=== PATIENT | male | born 1965 | race Caucasian/White ===

== ENCOUNTER 2016-05-28 15:17 | Emergency (ER) | payer OTHER ==
[2016-05-28 15:50] VITALS: BP 120/71; PULSE 79; RESP 18; TEMP 97.2
--- NOTE | 2016-05-28 16:52 | ED ---
Abdominal Pain HPI - General Chief Complaint: Abdominal Pain Stated Complaint: Abd Pain Time Seen by Provider: 05/28/16 16:30 Source: patient Mode of arrival: wheelchair Limitations: no limitations - History of Present Illness Initial Comments: This is a 51-year-old male with a history of right inguinal hernia repair and subsequent chronic right inguinal pain since the surgery. The surgery was done at 2002. Since that surgery is been having chronic pain. He used to be on tramadol for this at home. He states the last 9 months he has not been on any tramadol because he has been homeless and without a job without any money. He recently was taken in by some friends who wanted to get him some help. He does not have a surgeon to follow-up with here. Denies any nausea, vomiting, or diarrhea. He does admit to some weight loss because of the pain area no other complaints. - Related Data Previous Rx's Medication Instructions Recorded traMADol HCL [Ultram] 100 mg PO TID #20 tab 05/28/16 Allergies Allergy/AdvReac Type Severity Reaction Status Date / Time No Known Allergies Allergy Verified 05/28/16 16:55 Review of Systems ROS Statement: Those systems with pertinent positive or pertinent negative responses have been documented in the HPI. ROS Other: All systems not noted in ROS Statement are negative. Past Medical History Additional Past Medical History / Comment(s): chronic abd pain from an old surg. History of Any Multi-Drug Resistant Organisms: None Reported Past Surgical History: Hernia Repair Additional Past Surgical History / Comment(s): abd surg Smoking Status: Current every day smoker Past Alcohol Use History: None Reported Past Drug Use History: None Reported General Exam - General Exam Comments Initial Comments: Constitutional: Awake alert Appears comfortable Head: Normocephalic atraumatic Eyes: no conjunctival injection No scleral icterus EOMI Neck: No JVD Supple Heart: Regular rate rhythm normal S1-S2 no murmurs Lungs: Clear to auscultation bilaterally No wheezing No rales Abdomen: Soft nondistended is in the right inguinal region, there is no inguinal hernia palpated bilaterally on examination Extremities: Non edematous DP pulses intact Radial pulses intact Neuro: A&Ox3 No focal neurologic deficits Psych: Appropriate mood and affect Limitations: no limitations Course Vital Signs 05/28/16 15:46 Temperature 97.2 F L Pulse Rate 79 Respiratory 18 Rate Blood Pressure 120/71 O2 Sat by Pulse 99 Oximetry Medical Decision Making - Medical Decision Making Is a 51-year-old male came in with chronic right inguinal pain. No evidence of incarcerated hernia on examination. The patient states that this pain is typical for him and is chronic and he was just here 2 opiates relief. I did provide him with a prescription for Ultram. He is given a follow-up with Dr. Nunes as an outpatient. He can return is worsening symptoms. All questions were answered. Disposition Clinical Impression: Post-operative pain Disposition: HOME SELF-CARE Condition: Stable Instructions: Inguinal Hernia (ED) Prescriptions: traMADol HCL [Ultram] 100 mg PO TID #20 tab Referrals: None,Stated [Primary Care Provider] - 1-2 days Pratik Nunes MD [STAFF PHYSICIAN] - 1-2 days
[2016-05-28] MEDS: traMADol 50 MG TAB PO STA ×2 (17:02→17:08)
== END 2016-05-28 17:14 | disposition home or self-care (01) ==
LOC: EC 15:17
DX: G89.28 Other chronic postprocedural pain (principal); R10.31 Right lower quadrant pain; F17.200 Nicotine dependence, unspecified, uncomplicated; Z98.890 Other specified postprocedural states
CPT/HCPCS: 99283

== ENCOUNTER 2016-10-16 01:18 | Emergency (ER) | payer OTHER ==
[2016-10-16] MEDS ORDERED: SODIUM CHLORIDE 0.9% 1,000 ML IV STA (01:53)
[2016-10-16] MEDS ORDERED: RX INFO: IV CONTRAST WAS GIVEN 1 EACH MISC MISCELLANE PRN (01:53)
[2016-10-16 02:44] LABS: Appearance,Urine Clear (Clear); Bilirubin,Urine Negative (Negative); Glucose,Urine (UA) Negative (Negative); Ketones,Urine Negative (Negative); Leukocyte Esterase,Urine Negative (Negative); Nitrite,Urine Negative (Negative); PH, Urine 5.5 (5.0-8.0); Protein,Urine Trace (Negative); Specific Gravity,Urine 1.025 (1.001-1.035); UA Billing (MACRO vs. MICRO) CHEM
[2016-10-16 02:46] LABS: Basophils # (A) 0.1 k/uL (0-0.2); Basophils % (A) 1 %; CH 32.3; CHCM 33.6; Eosinophils # (A) 0.4 k/uL (0-0.7); Eosinophils % (A) 3 %; HCT 46.3 % (39.0-53.0); HDW 2.23; HGB 15.5 gm/dL (13.0-17.5); Large Platelets Flag Slight; Luc # (Auto) 0.31; Luc % (Auto) 3; Lymphocytes # (A) 3.1 k/uL (1.0-4.8); Lymphocytes % (A) 27 %; MCH 32.3 pg (25.0-35.0); MCHC 33.5 g/dL (31.0-37.0); MCV 96.5 fL (80.0-100.0); Mean Platelet Volume 10.5; Monocytes # (A) 1.4 k/uL (0-1.0); Monocytes % (A) 12 %; Neutrophils # (A) 6.2 k/uL (1.3-7.7); Neutrophils % (A) 55 %; RDW 12.9 % (11.5-15.5); WBC 11.4 k/uL (3.8-10.6); WBC (Perox) 11.95
[2016-10-16 03:03] LABS: ALT 40 U/L (21-72); AST 33 U/L (17-59); Alkaline Phosphatase 100 U/L (38-126); Amylase 67 U/L (30-110); Anion Gap 11 mmol/L; Blood Urea Nitrogen 18 mg/dL (9-20); C Reactive Protein <5.0 mg/L (<10.0); Calcium 9.9 mg/dL (8.4-10.2); Carbon Dioxide 25 mmol/L (22-30); Chloride 105 mmol/L (98-107); Glucose 90 mg/dL (74-99); Non-African American GFR(MDRD) >60 (>60 ml/min/1.73 sqM); Potassium 4.3 mmol/L (3.5-5.1); Sodium 141 mmol/L (137-145); Total Bilirubin 0.4 mg/dL (0.2-1.3); Total Protein 7.5 g/dL (6.3-8.2)
[2016-10-16 03:20] LABS: Manual Review Performed
--- NOTE | 2016-10-16 03:47 | ED ---
Abdominal Pain HPI - General Chief Complaint: Abdominal Pain Stated Complaint: abd pain Time Seen by Provider: 10/16/16 01:40 Source: patient Mode of arrival: ambulatory Limitations: no limitations - History of Present Illness Initial Comments: 51 years old male complain about abdominal pain ongoing since 2002 he is status post inguinal hernia surgery he still has his gallbladder and appendix he feels bloated and no bowel movement for last 2 days he denies any nausea vomiting denies any diarrhea. He has lost about 30 pounds in a pool here he said his weight has been stable since May this year he had malar changes like he is eating normal healthy now. Denies any fever no chills no diarrhea - Related Data Home Medications Medication Instructions Recorded Confirmed No Known Home Medications [No 10/16/16 10/16/16 Known Home Medications] Allergies Allergy/AdvReac Type Severity Reaction Status Date / Time No Known Allergies Allergy Verified 10/16/16 01:34 Review of Systems ROS Statement: Those systems with pertinent positive or pertinent negative responses have been documented in the HPI. ROS Other: All systems not noted in ROS Statement are negative. Past Medical History Additional Past Medical History / Comment(s): chronic abd pain from an old surg. History of Any Multi-Drug Resistant Organisms: None Reported Past Surgical History: Hernia Repair Additional Past Surgical History / Comment(s): abd surg Past Psychological History: No Psychological Hx Reported Smoking Status: Current every day smoker Past Alcohol Use History: None Reported Past Drug Use History: None Reported General Exam - General Exam Comments Initial Comments: General: The patient is awake and alert, in no distress, and does not appear acutely ill. Skin: Skin is warm and dry and no rashes or lesions are noted. Eye: Pupils are equal, round and reactive to light, extra-ocular movements are intact; there is normal conjunctiva bilaterally. Ears, nose, mouth and throat: There are moist mucous membranes and no oral lesions. Neck: The neck is supple, there is no tenderness or JVD. Cardiovascular: There is a regular rate and rhythm. No murmur, rub or gallop is appreciated. Respiratory: To auscultation bilateral, no wheezing no rhonchi no distress respiratory guerin noticed Gastrointestinal: Mild diffuse tenderness in the lower abdomen, positive bowel sounds no guarding no rebounds no signs of any peritoneal irritation Back: There is no tenderness to palpation in the midline. There is no obvious deformity. Musculoskeletal: Normal ROM, no tenderness, There is no pedal edema. There is no calf tenderness or swelling. No cords were appreciated. Neurological: CN II-XII intact, Cranial nerves III through XII are intact. There are no obvious motor or sensory deficits. Coordination appears grossly intact. Speech is normal. Psychiatric: Cooperative, appropriate mood & affect, normal judgment. Limitations: no limitations Course Vital Signs 10/16/16 01:31 Temperature 97.8 F Pulse Rate 94 Respiratory 18 Rate Blood Pressure 119/73 O2 Sat by Pulse 98 Oximetry Medical Decision Making - Lab Data Result diagrams: 10/16/16 02:22 10/16/16 02:22 Lab Results 10/16/16 10/16/16 10/16/16 Range/Units 02:22 02:22 02:22 WBC 11.4 H (3.8-10.6) k/uL RBC 4.80 (4.30-5.90) m/uL Hgb 15.5 (13.0-17.5) gm/dL Hct 46.3 (39.0-53.0) % MCV 96.5 (80.0-100.0) fL MCH 32.3 (25.0-35.0) pg MCHC 33.5 (31.0-37.0) g/dL RDW 12.9 (11.5-15.5) % Plt Count 209 (150-450) k/uL Neutrophils % 55 % Lymphocytes % 27 % Monocytes % 12 % Eosinophils % 3 % Basophils % 1 % Neutrophils # 6.2 (1.3-7.7) k/uL Lymphocytes # 3.1 (1.0-4.8) k/uL Monocytes # 1.4 H (0-1.0) k/uL Eosinophils # 0.4 (0-0.7) k/uL Basophils # 0.1 (0-0.2) k/uL Manual Slide Review Performed Sodium 141 (137-145) mmol/L Potassium 4.3 (3.5-5.1) mmol/L Chloride 105 (98-107) mmol/L Carbon Dioxide 25 (22-30) mmol/L Anion Gap 11 mmol/L BUN 18 (9-20) mg/dL Creatinine 0.80 (0.66-1.25) mg/dL Est GFR (MDRD) Af Amer >60 (>60 ml/min/1.73 sqM) Est GFR (MDRD) Non-Af >60 (>60 ml/min/1.73 sqM) Glucose 90 (74-99) mg/dL Calcium 9.9 (8.4-10.2) mg/dL Total Bilirubin 0.4 (0.2-1.3) mg/dL AST 33 (17-59) U/L ALT 40 (21-72) U/L Alkaline Phosphatase 100 (38-126) U/L C-Reactive Protein <5.0 (<10.0) mg/L Total Protein 7.5 (6.3-8.2) g/dL Albumin 4.9 (3.5-5.0) g/dL Amylase 67 (30-110) U/L Lipase 278 (23-300) U/L Urine Color Yellow Urine Appearance Clear (Clear) Urine pH 5.5 (5.0-8.0) Ur Specific [place] 1.025 (1.001-1.035) Urine Protein Trace H (Negative) Urine Glucose (UA) Negative (Negative) Urine Ketones Negative (Negative) Urine Blood Negative (Negative) Urine Nitrite Negative (Negative) Urine Bilirubin Negative (Negative) Urine Urobilinogen 3.0 (<2.0) mg/dL Ur Leukocyte Esterase Negative (Negative) Disposition Clinical Impression: Abdominal pain, Weight loss, Acute abdomen, Ileus Disposition: HOME SELF-CARE Instructions: Abdominal Pain (ED) Additional Instructions: Since patient has lost some weight and now he has abdominal discomfort and bloating ongoing for quite some time no today's labs are extremely normal including CBC, CMP, urinalysis even CT abdomen didn't show much of the pathology C-reactive protein is negative as well. I advised patient to see Dr. Gonzalo Locke team and see if they recommend colonoscopy and EGD see if that explains her answers any of his symptoms, he agreed with the Referrals: Greg Lance DO [Primary Care Provider] - 1-2 days Jorge Luis De La Rosa MD [STAFF PHYSICIAN] - 1-2 days
--- NOTE | 2016-10-16 03:54 | CT ---
EXAM: CT Abdomen and Pelvis With Intravenous Contrast CLINICAL HISTORY: Right-sided abdominal pain TECHNIQUE: Axial computed tomography images of the abdomen and pelvis with intravenous contrast. CTDI is 20 mGy and DLP is 400 mGy-cm. This CT exam was performed using one or more of the following dose reduction techniques: automated exposure control, adjustment of the mA and/or kV according to patient size, and/or use of iterative reconstruction technique. Coronal and sagittal reformatted images were created and reviewed. COMPARISON: No relevant prior studies available. FINDINGS: Lower thorax: No acute findings. ABDOMEN: Liver: Mild fatty infiltration. No mass. Gallbladder and bile ducts: Unremarkable. No calcified stones. No ductal dilation. Pancreas: Unremarkable. No mass. No ductal dilation. Spleen: Unremarkable. No splenomegaly. Adrenals: Unremarkable. No mass. Kidneys and ureters: Unremarkable. No solid mass. No hydronephrosis. Stomach and bowel/Appendix: Paucity of intra-abdominal fat. The appendix is not definitively seen. Suboptimal evaluation for secondary signs. Fluid-filled nondilated small bowel loops, predominantly in the lower abdomen and pelvis. Fecal and gaseous distention of colon. No free air. No definite free fluid or fluid collections. PELVIS: Bladder: Thick walled. No mass. Reproductive: Unremarkable as visualized. ABDOMEN and PELVIS: Bones/joints: No acute fracture. No dislocation. Soft tissues: Evidence of prior bilateral inguinal hernia repair. Vasculature: Unremarkable. No abdominal aortic aneurysm. Lymph nodes: Unremarkable. No enlarged lymph nodes. IMPRESSION: Evaluation of GI tract is limited due to severe paucity of intra- abdominal fat and lack of oral contrast. The appendix is not visualized and appendicitis cannot be excluded based on this exam. No free air. Nondilated fluid filled small bowel loops in lower abdomen and pelvis may be due to ileus or enteritis. No grayson obstruction. Fecal and gaseous distention of colon. Thick walled bladder may be due to incomplete distention or cystitis. Evidence of prior inguinal hernia repair. No recurrence.
[2016-10-16 04:59] VITALS: BP 112/69; PULSE 70; RESP 16; TEMP 98.2
== END 2016-10-16 04:58 | disposition home or self-care (01) ==
LOC: EC 01:18
DX: K56.7 Ileus, unspecified (principal); R10.84 Generalized abdominal pain; R63.4 Abnormal weight loss; F17.200 Nicotine dependence, unspecified, uncomplicated; Z98.890 Other specified postprocedural states
CPT/HCPCS: 36415; 80053; 82150; 83690; 85025; 86140; 81003; 74177; 99284; 96360; 96361; Q9967